=== PATIENT | female | born 1970 | race Caucasian/White ===

== ENCOUNTER 2017-06-28 08:00 | Outpatient (CLI) | END 2017-06-28 23:59 | disposition home or self-care (01) ==

== ENCOUNTER → 2018-04-24 | Outpatient (CLI) | END | disposition home or self-care (01) ==

== ENCOUNTER → 2018-07-25 | Outpatient (CLI) | payer BC | END | disposition home or self-care (01) | LOC: LAB 14:52 | PROVIDERS: ATTEND Internal Medicine | DX: D64.9 Anemia, unspecified (principal) | CPT/HCPCS: 82728; 83540; 85025 ==